=== PATIENT | male | born 1960 | race African-American/Black ===

== ENCOUNTER 2023-04-12 12:03 | Inpatient (IN) | payer SELFPAY ==
[2023-04-12 12:53] LABS: #Basophils 0.1 thou/uL (0.0-0.2); #Monocytes 0.5 thou/uL (0.11-0.59); #Neutrophils 6.2 thou/uL (1.40-6.50); %Basophils 0.6 % (0.0-1.0); %Eosinophils 0.1 % (0.0-10.0); %Lymphocytes 15.7 % (21.0-51.0); %Monocytes 6.3 % (0.0-10.0); %Neutrophils 77.2 % (42.0-75.0); Hematocrit 40.7 % (42.0-52.0); Hemoglobin 14.7 g/dL (14.0-18.0); Mean Corpuscular HGB CONC 36.1 g/dL (32.0-36.0); Mean Corpuscular Hemoglobin 35.7 pg (27.0-31.0); Mean Corpuscular Volume 98.8 fl (78.0-98.0); Mean Platelet Volume 9.7 fL (7.4-10.4); Platelet Count 221 10x3/uL (130-400); RBC Distribution Width 14.1 % (11.5-14.5); Red Blood Cell (RBC) Count 4.12 mill/uL (4.70-6.10); White Blood Cell (WBC) Count 8.1 10x3/uL (4.8-10.8)
[2023-04-12 13:07] LABS: Prothrombin Time 13.9 sec (12.0-14.7)
[2023-04-12 13:08] LABS: PTT 32.4 sec (22.9-36.1)
[2023-04-12 13:10] LABS: D-Dimer Test 0.39 *mcg/mL (0.27-0.43)
[2023-04-12 13:25] LABS: Troponin I Less than 0.010 ng/mL (< 0.028)
[2023-04-12 13:28] LABS: ALT (SGPT) 26 U/L (8-55); AST (SGOT) 68 U/L (5-34); Albumin 4.4 g/dL (3.4-4.8); Alkaline Phosphatase 72 U/L (40-110); Anion Gap 20 mmol/L (10-20); BUN (Urea Nitrogen) 4 mg/dL (8.4-25.7); Bilirubin, Total 1.5 mg/dL (0.2-1.2); Calc. Creatinine Clearance 0 mL/min (70-130); Calcium 9.8 mg/dL (7.8-10.44); Carbon Dioxide 23 mmol/L (23-31); Chloride 98 mmol/L (98-107); Estimated GFR 97; Globulin 4.6 g/dL (2.4-3.5); Glucose 129 mg/dL (80-115); Lipase 29 U/L (8-78); Potassium 4.6 mmol/L (3.5-5.1); Sodium 136 mmol/L (136-145)
[2023-04-12] MEDS ORDERED: Aspirin Chewable 81 MG TAB ONE (13:34)
[2023-04-12] MEDS ORDERED: Aspirin 325 MG TAB ONE (13:35)
[2023-04-12] MEDS ORDERED: Ondansetron PF 4 MG/2 ML Vial ONE (13:41)
[2023-04-12] MEDS ORDERED: Morphine 4 MG/ML VIAL ONE (13:41)
[2023-04-12] MEDS ORDERED: Ondansetron ODT 4 MG TAB PO PRN ×2 (14:43→14:53)
[2023-04-12] MEDS ORDERED: Lorazepam 1 MG TAB PO PRN (14:43)
[2023-04-12] MEDS ORDERED: Lorazepam 2 MG/ML VIAL IM PRN (14:43)
[2023-04-12] MEDS ORDERED: Electrolyte Replacement Protocol 1 EACH FS SCH (14:45)
[2023-04-12] MEDS ORDERED: Acetaminophen 325 MG TAB PO PRN (14:53)
[2023-04-12] MEDS ORDERED: Folic Acid 1 MG TAB PO SCH (15:15)
[2023-04-12] MEDS ORDERED: Multivit, Therapeutic 1 TAB PO SCH (15:15)
[2023-04-12] MEDS ORDERED: Electrolyte Replacement Protocol FS PRN (15:30)
[2023-04-12 16:15] VITALS: BMI 21.9
[2023-04-12] MEDS ORDERED: Magnesium 2 GM/50 ML(in water) 2 GM in Premix Bag 1 BAG IVPB SCH (16:15)
[2023-04-12] MEDS: Thiamine HCl 200 MG/2 ML VIAL SLOW IVP SCH (16:30)
[2023-04-12] MEDS: Lorazepam 1 MG TAB PO SCH ×2 (17:58→23:54)
[2023-04-12] MEDS ORDERED: Communication Order-Pharmacy FS ONE (18:43)
[2023-04-12 19:37] LABS: Hemoglobin 13.7 g/dL (14.0-18.0); Platelet Count 206 10x3/uL (130-400)
[2023-04-12] MEDS: Sotalol HCl 80 MG TAB PO SCH (19:54)
[2023-04-13] MEDS: Lorazepam 1 MG TAB PO SCH ×4 (05:55→23:47)
[2023-04-13] MEDS ORDERED: Furosemide 20 MG/2 ML VIAL SLOW IVP SCH (06:00)
[2023-04-13 06:04] LABS: ALT (SGPT) 21 U/L (8-55); AST (SGOT) 44 U/L (5-34); Alkaline Phosphatase 60 U/L (40-110); Anion Gap 12 mmol/L (10-20); BUN (Urea Nitrogen) 9 mg/dL (8.4-25.7); Bilirubin, Total 2.4 mg/dL (0.2-1.2); Calc. Creatinine Clearance 84 mL/min (70-130); Calcium 9.5 mg/dL (7.8-10.44); Carbon Dioxide 26 mmol/L (23-31); Chloride 99 mmol/L (98-107); Cholesterol 248 mg/dl (< 200 Desired); Estimated GFR 91; Globulin 4.1 g/dL (2.4-3.5); Glucose 97 mg/dL (80-115); HDL Cholesterol 126 mg/dL (>60 Neg Risk); LDL Cholesterol, Calculated 106 mg/dL; Magnesium 2.4 mg/dL (1.6-2.6); Potassium 4.3 mmol/L (3.5-5.1); Protein, Total 8.1 g/dL (5.8-8.1); Sodium 133 mmol/L (136-145); Triglycerides 78 mg/dL (Less than 150)
[2023-04-13] MEDS: Sotalol HCl 80 MG TAB PO SCH ×2 (08:31→20:46)
[2023-04-13] MEDS: Folic Acid 1 MG TAB PO SCH (08:31)
[2023-04-13] MEDS: Multivit, Therapeutic 1 TAB PO SCH (08:31)
[2023-04-13] MEDS: Aspirin Chewable 81 MG TAB PO SCH (08:31)
[2023-04-13] MEDS ORDERED: Lorazepam 1 MG TAB PO PRN (14:43)
[2023-04-13] MEDS: Thiamine HCl 200 MG/2 ML VIAL SLOW IVP SCH (15:46)
[2023-04-14] MEDS: Lorazepam 1 MG TAB PO SCH ×2 (05:41→12:06)
[2023-04-14] MEDS: Aspirin Chewable 81 MG TAB PO SCH (08:26)
[2023-04-14] MEDS: Folic Acid 1 MG TAB PO SCH (08:26)
[2023-04-14] MEDS: Sotalol HCl 80 MG TAB PO SCH (08:26)
[2023-04-14] MEDS: Multivit, Therapeutic 1 TAB PO SCH (08:26)
[2023-04-14 08:56] LABS: Troponin I Less than 0.010 ng/mL (< 0.028)
[2023-04-14] MEDS ORDERED: Valsartan 80 MG TAB PO SCH (09:00)
[2023-04-14 11:51] VITALS: BP 117/71; TEMP 98.1
[2023-04-14] MEDS ORDERED: Lorazepam 1 MG TAB PO PRN (14:43)
[2023-04-14] MEDS ORDERED: Lorazepam 0.5 MG TAB PO SCH (18:00)
[2023-04-15] MEDS ORDERED: Lorazepam 0.5 MG TAB PO PRN (14:43)
[2023-04-15] MEDS ORDERED: Thiamine 100 MG TAB PO SCH (15:00)
== END 2023-04-14 15:25 | disposition home or self-care (01) | DRG 313 ==
LOC: ERS 12:03 → 2SW 14:34 → OBSVTOIN 04-13 16:29
PROVIDERS: ADMIT Internal Medicine; ATTEND Internal Medicine
DX: R07.9 Chest pain, unspecified (principal); I50.42 Chronic combined systolic (congestive) and diastolic (congestive) heart failure; I42.9 Cardiomyopathy, unspecified; I48.0 Paroxysmal atrial fibrillation; I11.0 Hypertensive heart disease with heart failure; F10.10 Alcohol abuse, uncomplicated; Z98.890 Other specified postprocedural states; Z82.49 Family history of ischemic heart disease and other diseases of the circulatory system; Z85.51 Personal history of malignant neoplasm of bladder; Z91.141 Patient's other noncompliance with medication regimen due to financial hardship; Z79.899 Other long term (current) drug therapy; Z91.013 Allergy to seafood; Z91.018 Allergy to other foods
CPT/HCPCS: 36415; 71045; 80053; 80061; 83690; 83735; 83880; 84484; 85025; 85379; 85610; 85730; 93005; 94760; 96374; 96375; 96376; G0378; J1650; J2270; J2405; J3411; J3475

== ENCOUNTER 2024-05-07 10:18 | Inpatient (IN) | payer OTHER, SELFPAY ==
[2024-05-07] MEDS ORDERED: Adenosine 6 mg (2 mL) VIAL ONE (10:39)
[2024-05-07] MEDS ORDERED: Iopamidol-370 76% 500 ML MDV (1 ML CHARGE) ONE (10:41)
[2024-05-07 10:46] LABS: #Basophils 0.04 10x3/uL (0.0-0.2); #Eosinophils Less than 0.03 10x3/uL (0.0-0.7); %Basophils 0.6 % (0.0-1.0); %Eosinophils 0.2 % (0.0-10.0); %Lymphocytes 18.9 % (21.0-51.0); %Monocytes 8.9 % (0.0-10.0); %Neutrophils 71.2 % (42.0-75.0); Hematocrit 41.3 % (42.0-52.0); Mean Corpuscular HGB CONC 36.3 g/dL (32.0-36.0); Mean Corpuscular Hemoglobin 35.7 pg (27.0-31.0); Mean Corpuscular Volume 98.3 fL (78.0-98.0); Mean Platelet Volume 9.9 fL (7.4-10.4); Platelet Count 178 10x3/uL (130-400); RBC Distribution Width 14.4 % (11.5-14.5)
[2024-05-07 11:11] LABS: ALT (SGPT) 43 U/L (8-55); AST (SGOT) 129 U/L (5-34); Albumin 4.1 g/dL (3.4-4.8); Alkaline Phosphatase 76 U/L (40-110); Anion Gap 17 mmol/L (10-20); BUN (Urea Nitrogen) 4 mg/dL (8.4-25.7); Bilirubin, Total 1.5 mg/dL (0.2-1.2); Calc. Creatinine Clearance 0 mL/min (70-130); Calcium 9.7 mg/dL (7.8-10.44); Carbon Dioxide 23 mmol/L (23-31); Chloride 97 mmol/L (98-107); Digoxin Less than 0.19 ng/mL (0.8-2.0); Estimated GFR 97; Globulin 4.5 g/dL (2.4-3.5); Glucose 117 mg/dL (80-115); Potassium 3.9 mmol/L (3.5-5.1); Protein, Total 8.6 g/dL (5.8-8.1); Sodium 133 mmol/L (136-145)
[2024-05-07 11:21] LABS: Acetaminophen Less than 10 mcg/mL (Less than 10); Alcohol 34.6 mg/dL (Less than 10); Salicylate Less than 8.0 mg/dL (Less than 8.0)
[2024-05-07 11:28] LABS: Troponin I Less than 0.010 ng/mL (< 0.028)
[2024-05-07] MEDS ORDERED: Calcium Carbonate 500 MG ChewTAB PO PRN (14:36)
[2024-05-07] MEDS ORDERED: Guaifenesin DM 100-10/5 ML UDCUP PO PRN (14:36)
[2024-05-07] MEDS ORDERED: Senokot S 8.6-50 MG TAB PO PRN (14:36)
[2024-05-07] MEDS ORDERED: Ondansetron PF 4 MG/2 ML Vial IVP PRN (14:36)
[2024-05-07] MEDS ORDERED: Bisacodyl 10 MG SUPP PR PRN (14:36)
[2024-05-07] MEDS ORDERED: Ondansetron ODT 4 MG TAB PO PRN (14:41)
[2024-05-07] MEDS ORDERED: Lorazepam 2 MG/ML VIAL IM PRN (14:41)
[2024-05-07] MEDS ORDERED: Lorazepam 1 MG TAB PO PRN (14:41)
[2024-05-07] MEDS ORDERED: Electrolyte Replacement Protocol 1 EACH FS SCH (14:45)
[2024-05-07] MEDS: Lorazepam 1 MG TAB PO SCH (15:15)
[2024-05-07] MEDS: Thiamine HCl 200 MG/2 ML VIAL SLOW IVP SCH (15:15)
[2024-05-07] MEDS: Thiamine 100 MG TAB PO SCH (15:15)
[2024-05-07 15:48] LABS: Magnesium 1.9 mg/dL (1.6-2.6)
[2024-05-07] MEDS: Amiodarone 150 MG in Dextrose 5% in Water 100 ML IVPB SCH (15:57)
[2024-05-07] MEDS: Amiodarone 450 MG in Dextrose 5% in Water 250 ML IVPB SCH (15:57)
[2024-05-07 18:37] VITALS: BMI 22.8
[2024-05-07] MEDS: Apixaban 5 MG TAB PO SCH (20:36)
[2024-05-07] MEDS: Famotidine 20 MG TAB PO SCH (20:36)
[2024-05-07] MEDS: Magnesium 2 GM/50 ML(in water) 2 GM in Premix 1 BAG IVPB SCH (20:36)
[2024-05-08 05:09] LABS: #Basophils 0.04 10x3/uL (0.0-0.2); %Basophils 0.8 % (0.0-1.0); %Eosinophils 1.2 % (0.0-10.0); %Lymphocytes 37.9 % (21.0-51.0); %Monocytes 14.4 % (0.0-10.0); %Neutrophils 45.5 % (42.0-75.0); Hematocrit 33.2 % (42.0-52.0); Hemoglobin 11.5 g/dL (14.0-18.0); Mean Corpuscular HGB CONC 34.6 g/dL (32.0-36.0); Mean Corpuscular Hemoglobin 35.7 pg (27.0-31.0); Mean Corpuscular Volume 103.1 fL (78.0-98.0); Platelet Count 138 10x3/uL (130-400); RBC Distribution Width 14.2 % (11.5-14.5); Red Blood Cell (RBC) Count 3.22 mill/uL (4.70-6.10)
[2024-05-08 05:36] LABS: ALT (SGPT) 29 U/L (8-55); AST (SGOT) 76 U/L (5-34); Alkaline Phosphatase 51 U/L (40-110); Anion Gap 14 mmol/L (10-20); BUN (Urea Nitrogen) Less than 4 mg/dL (8.4-25.7); Bilirubin, Total 2.3 mg/dL (0.2-1.2); Calc. Creatinine Clearance 106 mL/min (70-130); Calcium 7.7 mg/dL (7.8-10.44); Carbon Dioxide 22 mmol/L (23-31); Chloride 103 mmol/L (98-107); Estimated GFR 101; Globulin 3.2 g/dL (2.4-3.5); Glucose 88 mg/dL (80-115); Potassium 2.9 mmol/L (3.5-5.1); Protein, Total 6.2 g/dL (5.8-8.1); Sodium 136 mmol/L (136-145)
[2024-05-08] MEDS: Potassium Chloride 20 MEQ TAB PO SCH (08:54)
[2024-05-08] MEDS: Aspirin Chewable 81 MG TAB PO SCH (08:55)
[2024-05-08] MEDS: Folic Acid 1 MG TAB PO SCH (08:56)
[2024-05-08] MEDS: Multivit, Therapeutic 1 TAB PO SCH (08:56)
[2024-05-08] MEDS: Valsartan 80 MG TAB PO SCH (08:56)
[2024-05-08] MEDS ORDERED: Folic Acid 1 MG TAB PO SCH (09:00)
[2024-05-08] MEDS: Acetaminophen 325 MG TAB PO PRN (14:14)
[2024-05-08] MEDS ORDERED: Lorazepam 1 MG TAB PO PRN (14:42)
[2024-05-09 04:47] LABS: Hematocrit 35.9 % (42.0-52.0); Hemoglobin 12.9 g/dL (14.0-18.0); Mean Corpuscular HGB CONC 35.9 g/dL (32.0-36.0); Mean Corpuscular Hemoglobin 36.2 pg (27.0-31.0); Mean Corpuscular Volume 100.8 fL (78.0-98.0); Mean Platelet Volume 10.3 fL (7.4-10.4); Platelet Count 154 10x3/uL (130-400); RBC Distribution Width 13.6 % (11.5-14.5); Red Blood Cell (RBC) Count 3.56 mill/uL (4.70-6.10)
[2024-05-09 07:01] LABS: Anion Gap 13 mmol/L (10-20); BUN (Urea Nitrogen) 6 mg/dL (8.4-25.7); Calc. Creatinine Clearance 91 mL/min (70-130); Calcium 9.1 mg/dL (7.8-10.44); Carbon Dioxide 25 mmol/L (23-31); Chloride 98 mmol/L (98-107); Estimated GFR 97; Glucose 106 mg/dL (80-115); Magnesium 1.9 mg/dL (1.6-2.6); Potassium 3.9 mmol/L (3.5-5.1); Sodium 132 mmol/L (136-145)
[2024-05-09] MEDS: Magnesium 2 GM/50 ML(in water) 2 GM in Premix 1 BAG IVPB SCH (09:15)
[2024-05-09] MEDS ORDERED: Lorazepam 1 MG TAB PO PRN (14:42)
[2024-05-09] MEDS: Lorazepam 0.5 MG TAB PO SCH (15:05)
[2024-05-09] MEDS: FLU (Fluarix Triv) TS24-25(6MOS UP)/PF 45 MCG/0.5 ML Syringe IM ONE ×2 (16:33→16:34)
[2024-05-10 05:03] LABS: Anion Gap 13 mmol/L (10-20); BUN (Urea Nitrogen) 7 mg/dL (8.4-25.7); Calc. Creatinine Clearance 96 mL/min (70-130); Calcium 9.2 mg/dL (7.8-10.44); Carbon Dioxide 23 mmol/L (23-31); Chloride 98 mmol/L (98-107); Estimated GFR 98; Glucose 96 mg/dL (80-115); Potassium 3.6 mmol/L (3.5-5.1); Sodium 130 mmol/L (136-145)
[2024-05-10] MEDS: Thiamine 100 MG TAB PO SCH (09:49)
[2024-05-10] MEDS ORDERED: Lorazepam 0.5 MG TAB PO PRN (14:42)
[2024-05-10] MEDS: Sacubitril 24MG/Valsartan 26 MG TAB PO SCH (21:33)
[2024-05-10] MEDS: Amiodarone 200 MG TAB PO SCH (21:33)
[2024-05-11] MEDS: Spironolactone 25 MG TAB PO SCH (09:11)
[2024-05-11] MEDS: Dapagliflozin Propanediol 10 MG TAB PO SCH (09:12)
[2024-05-11 11:14] VITALS: BP 163/84; TEMP 97.3
[2024-05-17] MEDS ORDERED: Amiodarone 200 MG TAB PO SCH (09:00)
== END 2024-05-11 15:00 | disposition home or self-care (01) | DRG 309 ==
LOC: ERS 10:18 → 2NO 13:06
PROVIDERS: ADMIT Internal Medicine; ATTEND Internal Medicine
DX: I48.0 Paroxysmal atrial fibrillation (principal); E87.1 Hypo-osmolality and hyponatremia; I50.42 Chronic combined systolic (congestive) and diastolic (congestive) heart failure; I47.10 Supraventricular tachycardia, unspecified; I42.0 Dilated cardiomyopathy; I11.0 Hypertensive heart disease with heart failure; I25.2 Old myocardial infarction; F41.9 Anxiety disorder, unspecified; F31.9 Bipolar disorder, unspecified; E87.6 Hypokalemia; F10.20 Alcohol dependence, uncomplicated; Z79.899 Other long term (current) drug therapy; D64.9 Anemia, unspecified; Z91.148 Patient's other noncompliance with medication regimen for other reason; Z79.01 Long term (current) use of anticoagulants
CPT/HCPCS: 36415; 71045; 71275; 80048; 80053; 80162; 80307; 83735; 84100; 84443; 84484; 85025; 85027; 85379; 90656; 93005; 93010; 93306; 96360; J0153; J0282; J3411; J3475; J7070; Q9967